=== PATIENT | female | born 1985 | race Two or more races ===

== ENCOUNTER 2020-12-15 11:02 | Outpatient (CLI) | payer OTHER | END 2020-12-15 12:56 | disposition home or self-care (01) | LOC: OFIC 805 11:02 | PROVIDERS: ATTEND Otolaryngology Otology & Neurotology | DX: R04.0 Epistaxis (principal); H61.23 Impacted cerumen, bilateral; H90.3 Sensorineural hearing loss, bilateral ==

== ENCOUNTER 2020-12-29 11:47 | Outpatient (CLI) | payer OTHER | END 2020-12-29 12:47 | disposition home or self-care (01) | LOC: OFIC 805 11:47 | PROVIDERS: ATTEND Otolaryngology Otology & Neurotology | DX: R04.0 Epistaxis (principal); H61.23 Impacted cerumen, bilateral; H90.3 Sensorineural hearing loss, bilateral; L30.8 Other specified dermatitis ==